=== PATIENT | male | born 1960 | race Caucasian/White ===

== ENCOUNTER 2020-09-17 07:03 | Emergency (ER) | payer OTHER ==
[~2020-09-17] VITALS: Ht 172.7 cm; Wt 83.9 kg
[2020-09-17 07:38] VITALS: Ht 172.7 cm; Wt 83.9 kg
[2020-09-17 08:04] LABS: BASOPHIL % 0.5 % (0.2-1.5); PLATELET COUNT 178 x10^3mcL (152-348); RED CELL DISTRIBUTION WIDTH 12.4 % (12.1-16.2)
[2020-09-17 08:11] LABS: CALCIUM 8.4 mg/dL (8.5-10.1); CARBON DIOXIDE 26.7 mmol/L (21-32); CHLORIDE SERUM 104 mmol/L (98-107); CREATININE SERUM 0.9 mg/dL (0.7-1.3); GFR1 > 60 mL/min; GLUCOSE SERUM 114 mg/dL (74-106); POTASSIUM SERUM 4.2 mmol/L (3.5-5.1); SODIUM SERUM 141 mmol/L (136-145)
[2020-09-17 08:16] LABS: ALBUMIN 3.6 g/dL (3.4-5.0); ALKALINE PHOSPHATASE 48 U/L (46-116); ALT/SGPT 45 U/L (16-63); AST/SGOT 39 U/L (15-37); BILIRUBIN TOTAL 0.5 mg/dL (0.20-1.00); HDL CHOLESTEROL 43 mg/dL (40-60); LIPASE 779 IU/L (73-393); TOTAL PROTEIN, SERUM 6.8 g/dL (6.4-8.2)
[2020-09-17 08:19] LABS: CHOLESTEROL 105 mg/dL (<200)
[2020-09-17] MEDS ORDERED: LIPITOR10 MG PO (08:33)
[2020-09-17] MEDS ORDERED: GLIPIZIDE XL10 M1 PO (08:34)
[2020-09-17] MEDS ORDERED: FORTAMET1000 MG PO (08:35)
[2020-09-17] MEDS ORDERED: ZESTRIL10 MG PO (08:35)
[2020-09-17] MEDS ORDERED: ENBREL50 MG/ML SQ (08:36)
[2020-09-17 08:53] LABS: microscopic required? NO
[2020-09-17 09:05] LABS: UA SPECIFIC GRAVITY >=1.030 (1.005-1.035); urine erythrocyte NEGATIVE (NEGATIVE)
[2020-09-17] MEDS ORDERED: ULTRAM50 MG PO (09:15)
[2020-09-17 09:43] LABS: AMPHETAMINE QUAL UR NONE DETECTED (See below)
[2020-09-17 09:45] LABS: MAGNESIUM 1.6 mg/dL (1.8-2.4); PHOSPHOROUS 3.6 mg/dL (2.5-4.9)
[2020-09-17 09:55] LABS: FREE T4 1.04 ng/dL (0.76-1.46); FREE THYROXINE INDEX 2.5 ug/dL (1.4-4.5); T4(THYROXINE) 6.9 ug/dL (4.7-13.3)
[2020-09-17 10:45] LABS: T3 TOTAL 0.92 ng/mL
[2020-09-17 11:44] LABS: rbc morphology (normal/abnorm) NORMAL (NORMAL)
[2020-09-17 12:58] VITALS: BP 194/67
== END 2020-09-17 12:58 | disposition short-term general hospital (02) ==
LOC: ED 07:03 → DU 08:50 → ED 08:50
PROVIDERS: Emergency Medicine; Family Medicine
DX: G45.9 Transient cerebral ischemic attack, unspecified (principal); E11.9 Type 2 diabetes mellitus without complications; I10 Essential (primary) hypertension; E78.00 Pure hypercholesterolemia, unspecified; Z20.828 Contact with and (suspected) exposure to other viral communicable diseases
CPT/HCPCS: 82962; 83880; 84439; J1644; Q9967; U0003